=== PATIENT | male | born 1935 | race Caucasian/White ===

== ENCOUNTER 2022-10-17 08:33 | Inpatient (IN) | payer MEDICARE ==
[~2022-10-17] VITALS: Ht 175.3 cm; Wt 97.9 kg
[2022-10-17] MEDS ORDERED: VALS1TAB67 PO (08:49)
[2022-10-17] MEDS ORDERED: HYDR12.55 PO (08:49)
[2022-10-17] MEDS ORDERED: POTA-150 PO (08:52)
[2022-10-17] MEDS ORDERED: ELIQ2.5T PO (08:52)
[2022-10-17 09:22] LABS: HEMATOCRIT 46.5 % (42.0-52.0); HEMOGLOBIN 15.5 g/dl (13.5-17.5); MEAN CORPUSCULAR HEMOGLOBIN 32.5 pg (27.0-33.0); MEAN CORPUSCULAR HGB CONC 33.3 g/dl (32.0-36.5); MEAN CORPUSCULAR VOLUME 97.5 fl (80.0-96.0); PLATELET COUNT, AUTOMATED 122 10^3/uL (150-450); RED BLOOD COUNT 4.77 10^6/uL (4.30-6.10); WHITE BLOOD COUNT 5.4 10^3/uL (4.0-10.0)
[2022-10-17 09:29] LABS: APPEARANCE, URINE MANUAL CLOUDY (CLEAR); COLOR, URINE MANUAL RED (YELLOW)
[2022-10-17 09:39] LABS: PH,URINE MAN 8.5 UNITS (5.0 - 7.0); SPECIFIC GRAVITY,URINE MANUAL 1.005 (1.002-1.035)
[2022-10-17 09:40] LABS: BILIRUBIN, URINE MANUAL NEGATIVE (NEGATIVE); BLOOD URINE MANUAL POSITIVE (NEGATIVE); GLUCOSE, URINE (UA) MANUAL NEGATIVE (NEGATIVE); KETONE, URINE MANUAL NEGATIVE (NEGATIVE); LEUKOCYTE ESTERASE, URINE MAN POSITIVE (NEGATIVE); NITRITE, URINE MANUAL POSITIVE (NEGATIVE); PROTEIN, URINE MANUAL 2+ mg/dL (NEGATIVE); UROBILINOGEN, URINE MANUAL NORMAL (NORMAL)
[2022-10-17 09:41] LABS: RBC, URINE TNTC /hpf (0-3)
[2022-10-17 09:42] LABS: BACTERIA, URINE MOD AMOUNT; HYALINE CAST, URINE NONE SEEN /lpf (0-1); SQUAMOUS EPITHELIAL CELL URINE NONE SEEN /hpf (SMALL AMT); WBC, URINE 20-30 /hpf (0-3)
[2022-10-17 09:46] LABS: RSV AMPLIFICATION NEGATIVE (NEGATIVE)
[2022-10-17] MEDS ORDERED: cefTRIAXone SOD 2 GM in D5W MINI-BAG PLUS 50 ML IV ONE (09:50)
[2022-10-17] MEDS ORDERED: NS 2,760 ML in IV 1 EA IV ONE (09:50)
[2022-10-17 09:56] LABS: ALBUMIN 3.1 G/DL (3.2-5.2); ALKALINE PHOSPHATASE 128 U/L (46-116); ALT/SGPT 36 U/L (7.0-40); AST/SGOT 67 U/L (<34); BILIRUBIN,DIRECT 0.8 MG/DL (<0.4); BILIRUBIN,TOTAL 1.4 MG/DL (0.3-1.2); CK-MB VALUE MASS < 1.0 NG/ML (<3.6); TOTAL PROTEIN 5.7 G/DL (5.7-8.2)
[2022-10-17 09:57] LABS: LYMPHOCYTES 7 % (16-44); METAMYELOCYTES 1 % (0-0); MONOCYTES 1 % (0-5); NEUTROPHILS 79 % (28-66)
[2022-10-17 09:58] LABS: PLATELET ESTIMATE DECREASED (NORMAL)
[2022-10-17 10:04] LABS: INR 1.62; PROTHROMBIN TIME 19.5 SECONDS (12.5-14.5)
[2022-10-17 10:22] LABS: CPK CREATINE PHOSPHOKINASE 71 U/L (46-171)
[2022-10-17] MEDS ORDERED: MED REC IN PROGRESS XX SCH (13:10)
[2022-10-17] MEDS ORDERED: ACETAMINOPHEN TAB 650MG DOSE (2X325MG) PO PRN (13:25)
[2022-10-17] MEDS ORDERED: HOME MED LIST COMPLETE! XX SCH (13:25)
[2022-10-17] MEDS ORDERED: REMDESIVIR 200 MG in NS 250 ML IV ONE (13:55)
[2022-10-17] MEDS ORDERED: ONDANSETRON 4MG 2ML VIAL IV PRN (13:55)
[2022-10-17 14:10] VITALS: BP 138/63; TEMP 98.5; O2SAT 95
[2022-10-17] MEDS: APIXABAN 2.5 MG TAB (ELIQUIS) PO SCH ×2 (14:27→21:50)
[2022-10-17] MEDS: PANTOPRAZOLE 40MG VIAL IV SCH (15:39)
[2022-10-17] MEDS: AZITHROMYCIN 250MG TABLET PO SCH (15:40)
[2022-10-17] MEDS ORDERED: SODIUM CHLORIDE 0.9% INJ 10 ML SYR IV ONE (15:55)
[2022-10-17 16:17] LABS: CALCIUM LEVEL 7.4 MG/DL (8.3-10.6); CK-MB VALUE MASS < 1.0 NG/ML (<3.6); CREATININE FOR GFR 1.79 MG/DL (0.70-1.30); GLOMERULAR FILTRATION RATE 38.3 (>35); POTASSIUM SERUM 3.4 MMOL/L (3.5-5.1)
[2022-10-17 16:23] VITALS: BP 120/57; TEMP 98.7; O2SAT 95
[2022-10-17 16:30] LABS: CPK CREATINE PHOSPHOKINASE 207 U/L (46-171); MB/CK RELATIVE INDEX 0.48 (< OR =4)
[2022-10-17] MEDS ORDERED: POTASSIUM CHLORIDE 10MEQ SR TABLET PO ONE (17:45)
[2022-10-17 20:46] VITALS: BP 94/52; TEMP 99.7; O2SAT 94
[2022-10-17] MEDS ORDERED: NS 500 ML IV ONE ×2 (21:35→22:40)
[2022-10-17] MEDS ORDERED: NS 1,000 ML IV SCH (21:35)
[2022-10-17 22:35] VITALS: BP 92/50
[2022-10-17 23:55] VITALS: BP 96/48; TEMP 99.5; O2SAT 94
[2022-10-18] VITALS (8 sets, daily range): BP systolic 88–138; BP diastolic 50–68; TEMP 97.6–98.2; O2SAT 93–97
[2022-10-18 05:28] LABS: HEMATOCRIT 38.3 % (42.0-52.0); MEAN CORPUSCULAR HEMOGLOBIN 32.1 pg (27.0-33.0); MEAN CORPUSCULAR HGB CONC 32.6 g/dl (32.0-36.5); MEAN CORPUSCULAR VOLUME 98.2 fl (80.0-96.0); PLATELET COUNT, AUTOMATED 117 10^3/uL (150-450); WHITE BLOOD COUNT 25.1 10^3/uL (4.0-10.0)
[2022-10-18] MEDS ORDERED: NS 1,000 ML IV ONE (05:35)
[2022-10-18 05:36] LABS: HEMOGLOBIN 12.5 g/dl (13.5-17.5)
[2022-10-18 05:54] LABS: ATYPICAL LYMPH 1 % (0-5); LYMPHOCYTES 6 % (16-44); METAMYELOCYTES 1 % (0-0); MONOCYTES 6 % (0-5); NEUTROPHILS 77 % (28-66); PLATELET ESTIMATE DECREASED (NORMAL)
[2022-10-18 05:55] LABS: ANISOCYTOSIS 1+
[2022-10-18 05:56] LABS: MICROCYTOSIS 1+
[2022-10-18 06:09] LABS: ALBUMIN 2.6 G/DL (3.2-5.2); BILIRUBIN,DIRECT 0.6 MG/DL (<0.4); CALCIUM LEVEL 7.7 MG/DL (8.3-10.6); CREATININE FOR GFR 1.84 MG/DL (0.70-1.30); FREE T3 1.5 PG/ML (2.3-4.2); GLOMERULAR FILTRATION RATE 37.1 (>35); POTASSIUM SERUM 3.7 MMOL/L (3.5-5.1); THYROID STIMULATING HORMONE 3.75 uIU/ML (0.55-4.78); TOTAL PROTEIN 4.8 G/DL (5.7-8.2)
[2022-10-18] MEDS: ALBUTEROL 90 MCG/ACT 8GM HFA INHALER INH SCH ×3 (08:00→19:10)
[2022-10-18] MEDS: APIXABAN 2.5 MG TAB (ELIQUIS) PO SCH ×2 (08:10→20:14)
[2022-10-18] MEDS: PANTOPRAZOLE 40MG VIAL IV SCH (08:10)
[2022-10-18] MEDS: AZITHROMYCIN 250MG TABLET PO SCH (08:10)
[2022-10-18] MEDS: cefTRIAXone SOD 2 GM in D5W MINI-BAG PLUS 50 ML IV SCH (08:11)
[2022-10-18] MEDS ORDERED: cefTRIAXone SOD 1 GM in D5W MINI-BAG PLUS 50 ML IV SCH (10:00)
[2022-10-18] MEDS ORDERED: REMDESIVIR 100 MG in NS 250 ML IV SCH (13:55)
[2022-10-18] MEDS ORDERED: SODIUM CHLORIDE 0.9% INJ 10 ML SYR IV SCH (14:55)
[2022-10-19] MEDS: ALBUTEROL 90 MCG/ACT 8GM HFA INHALER INH SCH ×4 (00:57→19:11)
[2022-10-19 03:47] VITALS: BP 118/64; TEMP 98.5; O2SAT 96
[2022-10-19 05:47] LABS: HEMATOCRIT 38.7 % (42.0-52.0); HEMOGLOBIN 13.2 g/dl (13.5-17.5); MEAN CORPUSCULAR HEMOGLOBIN 32.8 pg (27.0-33.0); MEAN CORPUSCULAR HGB CONC 34.1 g/dl (32.0-36.5); MEAN CORPUSCULAR VOLUME 96.3 fl (80.0-96.0); PLATELET COUNT, AUTOMATED 114 10^3/uL (150-450); RED BLOOD COUNT 4.02 10^6/uL (4.30-6.10); WHITE BLOOD COUNT 20.3 10^3/uL (4.0-10.0)
[2022-10-19 06:27] LABS: CALCIUM LEVEL 7.2 MG/DL (8.3-10.6); CREATININE FOR GFR 1.35 MG/DL (0.70-1.30); POTASSIUM SERUM 3.2 MMOL/L (3.5-5.1)
[2022-10-19 06:35] LABS: LYMPHOCYTES 2 % (16-44); MONOCYTES 2 % (0-5); NEUTROPHILS 91 % (28-66); PLATELET ESTIMATE NORMAL (NORMAL)
[2022-10-19] MEDS ORDERED: POTASSIUM CHLORIDE 10MEQ SR TABLET PO ONE (07:25)
[2022-10-19] MEDS: AZITHROMYCIN 250MG TABLET PO SCH (07:58)
[2022-10-19] MEDS: cefTRIAXone SOD 2 GM in D5W MINI-BAG PLUS 50 ML IV SCH (07:59)
[2022-10-19] MEDS: PANTOPRAZOLE 40MG VIAL IV SCH (07:59)
[2022-10-19] MEDS: APIXABAN 2.5 MG TAB (ELIQUIS) PO SCH ×2 (07:59→20:33)
[2022-10-19 08:00] VITALS: BP 118/72; TEMP 98.6; O2SAT 95
[2022-10-19 12:15] VITALS: BP 109/66; TEMP 96.3; O2SAT 98
[2022-10-19 16:15] VITALS: BP 136/71; TEMP 97.6; O2SAT 97
[2022-10-19 20:00] VITALS: BP 109/68; TEMP 98; O2SAT 95
[2022-10-20] VITALS: BP 154/74; TEMP 98; O2SAT 97
[2022-10-20] MEDS: ALBUTEROL 90 MCG/ACT 8GM HFA INHALER INH SCH ×2 (01:26→08:00)
[2022-10-20 03:50] VITALS: BP 120/73; TEMP 98.8; O2SAT 97
[2022-10-20 06:13] LABS: BASO % 0.3 % (0.0-1.0); EOS # 0.3 10^3/uL (0.0-0.5); EOS % 1.9 % (0.0-3.0); HEMATOCRIT 39.6 % (42.0-52.0); HEMOGLOBIN 13.3 g/dl (13.5-17.5); LYMPH # 0.7 10^3/uL (1.5-5.0); LYMPH % 5.1 % (24.0-44.0); MEAN CORPUSCULAR HEMOGLOBIN 32.2 pg (27.0-33.0); MEAN CORPUSCULAR HGB CONC 33.6 g/dl (32.0-36.5); MEAN CORPUSCULAR VOLUME 95.9 fl (80.0-96.0); MONO # 0.6 10^3/uL (0.0-0.8); MONO % 4.4 % (2.0-8.0); NEUTROPHILS # 11.4 10^3/uL (1.5-8.5); NEUTROPHILS % 87.1 % (36.0-66.0); PLATELET COUNT, AUTOMATED 120 10^3/uL (150-450); RED BLOOD COUNT 4.13 10^6/uL (4.30-6.10); WHITE BLOOD COUNT 13.1 10^3/uL (4.0-10.0)
[2022-10-20 06:36] LABS: BLOOD UREA NITROGEN 26 MG/DL (9-23); CALCIUM LEVEL 8.2 MG/DL (8.3-10.6); CARBON DIOXIDE LEVEL 25 MMOL/L (20-31); CHLORIDE LEVEL 110 MMOL/L (98-107); CREATININE FOR GFR 1.19 MG/DL (0.70-1.30); GLOMERULAR FILTRATION RATE > 60.0 (>35); GLUCOSE, FASTING 97 MG/DL (74-106); POTASSIUM SERUM 3.4 MMOL/L (3.5-5.1); SODIUM LEVEL 143 MMOL/L (136-145)
[2022-10-20] MEDS ORDERED: POTASSIUM CHLORIDE 10MEQ SR TABLET PO ONE ×2 (07:05→11:00)
[2022-10-20] MEDS ORDERED: NORV5TAB PO ×2 (07:10→09:06)
[2022-10-20] MEDS ORDERED: PROBCAP14 PO ×2 (07:10→09:06)
[2022-10-20] MEDS ORDERED: CEFD300C41 PO ×2 (07:10→09:06)
[2022-10-20 07:51] VITALS: BP 153/90; TEMP 98.3; O2SAT 98
[2022-10-20] MEDS ORDERED: FUROSEMIDE 40MG/4ML VIAL IV ONE (08:10)
[2022-10-20] MEDS: cefTRIAXone SOD 2 GM in D5W MINI-BAG PLUS 50 ML IV SCH (08:56)
[2022-10-20] MEDS: APIXABAN 2.5 MG TAB (ELIQUIS) PO SCH (08:57)
[2022-10-20] MEDS: AZITHROMYCIN 250MG TABLET PO SCH (08:57)
[2022-10-20] MEDS: PANTOPRAZOLE 40MG VIAL IV SCH (08:57)
== END 2022-10-20 11:37 | disposition home or self-care (01) | DRG 871 ==
LOC: M ED 08:33 → M ED INP 12:23 → M PCU 13:48
PROVIDERS: ADMIT Internal Medicine Nephrology; ATTEND Internal Medicine Nephrology
PROC: XW033E5 Introduction of Remdesivir Anti-infective into Peripheral Vein, Percutaneous Approach, New Technology Group 5 (ICD-10-PCS; principal; 2022-10-17)
DX: A41.59 Other Gram-negative sepsis (principal); U07.1 COVID-19; J12.82 Pneumonia due to coronavirus disease 2019; G93.41 Metabolic encephalopathy; E87.20 Acidosis, unspecified; I48.92 Unspecified atrial flutter; N17.9 Acute kidney failure, unspecified; N39.0 Urinary tract infection, site not specified; K44.9 Diaphragmatic hernia without obstruction or gangrene; I48.91 Unspecified atrial fibrillation; I12.9 Hypertensive chronic kidney disease with stage 1 through stage 4 chronic kidney disease, or unspecified chronic kidney disease; M19.90 Unspecified osteoarthritis, unspecified site; N40.0 Benign prostatic hyperplasia without lower urinary tract symptoms; N18.30 Chronic kidney disease, stage 3 unspecified; Z96.653 Presence of artificial knee joint, bilateral; Z98.41 Cataract extraction status, right eye; Z98.42 Cataract extraction status, left eye; Z95.0 Presence of cardiac pacemaker; Z79.01 Long term (current) use of anticoagulants; Z79.899 Other long term (current) drug therapy; Z88.2 Allergy status to sulfonamides; Z88.8 Allergy status to other drugs, medicaments and biological substances